=== PATIENT | male | born 1970 | race Caucasian/White ===

== ENCOUNTER 2023-06-29 02:53 | Outpatient (CLI) | payer OTHER | END 2023-06-29 02:54 | disposition short-term general hospital (02) | LOC: EMS 02:53 | DX: M79.605 Pain in left leg (principal); R53.1 Weakness; E11.65 Type 2 diabetes mellitus with hyperglycemia; Z91.148 Patient's other noncompliance with medication regimen for other reason | CPT/HCPCS: A0425; A0427 ==